=== PATIENT | female | born 1975 | race Caucasian/White ===

== ENCOUNTER 2023-01-08 21:02 | Inpatient (IN) | payer MEDICAID ==
[~2023-01-08] VITALS: Ht 157.5 cm; Wt 68.0 kg
[2023-01-08 22:42] LABS: BASOPHILS % 0.3 % (0.0-2.0); EOSINOPHILS % 10.6 % (0.0-5.0); HEMATOCRIT. 43.5 % (36.0-48.0); HEMOGLOBIN. 14.5 g/dL (12.0-16.0); LYMPHOCYTES % 22.3 % (20.0-50.0); MEAN CORPUSCULAR HEMOGLOBIN 31.3 pg (28.0-32.0); MEAN CORPUSCULAR VOLUME 93.8 fL (81.0-99.0); MEAN PLATELET VOLUME 9.7 fl (7.4-10.4); MONOCYTES % 2.7 % (2.0-8.0); NEUTROPHILS % 64.1 % (40.0-76.0); PLATELET 268 x1000/uL (130-400); RED BLOOD CELL COUNT 4.63 mill/uL (4.2-5.4); RED CELL DISTRIBUTION WIDTH 13.5 % (11.6-14.6)
[2023-01-08 22:52] LABS: CHLORIDE 107 mEq/L (98-107)
[2023-01-08 22:52] LABS: CLARITY URINE CLOUDY (CLEAR); COLOR URINE YELLOW (YELLOW); KETONES URINE NEGATIVE (NEGATIVE); LEUKOCYTE ESTERASE URINE NEGATIVE (NEGATIVE); NITRITE URINE NEGATIVE (NEGATIVE); OCCULT BLOOD URINE NEGATIVE (NEGATIVE); PROTEIN URINE 2+ (NEGATIVE); SPECIFIC GRAVITY URINE 1.013 (1.005-1.030)
[2023-01-08 22:54] LABS: PARTIAL THROMBOPLASTIN TIME 24.7 sec (23.4-31.0); PROTHROMBIN TIME 10.5 sec (9.6-11.0)
[2023-01-08 23:08] LABS: ETHANOL BLOOD < 10 mg/dL
[2023-01-08 23:12] LABS: *AMPHETAMINES SCREEN URINE NEGATIVE (NEGATIVE); *BARBITURATES SCREEN URINE NEGATIVE (NEGATIVE); *BENZODIAZEPINES SCREEN URINE NEGATIVE (NEGATIVE); *COCAINE SCREEN URINE NEGATIVE (NEGATIVE); CANNABINOID URINE SCREEN NEGATIVE (NEGATIVE); METHADONE URINE SCREEN NEGATIVE (NEGATIVE); OPIATES URINE SCREEN NEGATIVE (NEGATIVE); PHENCYCLIDINE URINE SCREEN NEGATIVE (NEGATIVE)
[2023-01-08] MEDS ORDERED: LEVOTHYROXINE SODIUM 25MCG TABLET PO NR (23:30)
[2023-01-08] MEDS ORDERED: SODIUM CHLORIDE 0.9% 1,000 ML IV ONE (23:45)
[2023-01-08] MEDS ORDERED: SODIUM BICARBONATE 8.4% 1 MEQ/ML 50ML SYR IV NR (23:45)
[2023-01-09] MEDS ORDERED: ONDANSETRON HCL 4MG/2ML INJ IV PRN (08:45)
[2023-01-09] MEDS ORDERED: DOCUSATE SODIUM 100MG CAPSULE PO PRN (08:45)
[2023-01-09] MEDS ORDERED: GUAIFENESIN 200MG/10ML SUGAR FREE UDC PO PRN (08:45)
[2023-01-09] MEDS ORDERED: ACETAMINOPHEN 325MG TABLET PO PRN ×2 (08:45)
[2023-01-09] MEDS ORDERED: DIPHENHYDRAMINE 50MG/ML VIAL IV PRN (08:45)
[2023-01-09] MEDS ORDERED: MAGNESIUM/ALUMINUM HYDROXIDE/SIMETHICONE 30ML UDC PO PRN (08:45)
[2023-01-09] MEDS ORDERED: LEVOTHYROXINE SODIUM 50MCG TABLET PO SCH (09:00)
[2023-01-09] MEDS ORDERED: ENOXAPARIN 40MG/0.4ML SYR SUBCUT SCH (09:00)
[2023-01-09] MEDS ORDERED: FAMOTIDINE 20MG TABLET PO SCH ×2 (09:00→21:00)
[2023-01-09 10:52] LABS: T4 FREE 0.86 ng/dL (0.76-1.46)
[2023-01-09 12:00] VITALS: BP 151/68
[2023-01-09] MEDS ORDERED: LEVO25TA2 PO (12:13)
[2023-01-09 12:34] VITALS: BP 104/56
[2023-01-09 12:55] VITALS: BP 104/56
[2023-01-09 16:00] VITALS: BP 110/58
[2023-01-10] MEDS ORDERED: LEVOTHYROXINE SODIUM 25MCG TABLET PO SCH (06:30)
== END 2023-01-09 18:39 | disposition home or self-care (01) | DRG 811 ==
LOC: ER 21:02 → MICUSO 01-09 01:13 → 7WST 01-09 11:24
PROVIDERS: ADMIT Hospitalist; ATTEND Hospitalist
DX: T78.2XXA Anaphylactic shock, unspecified, initial encounter (principal); E87.20 Acidosis, unspecified; G45.9 Transient cerebral ischemic attack, unspecified; E03.8 Other specified hypothyroidism; M19.90 Unspecified osteoarthritis, unspecified site; R73.9 Hyperglycemia, unspecified; W19.XXXA Unspecified fall, initial encounter
CPT/HCPCS: 36415; 71045; 80053; 80061; 80305; 80307; 80320; 80329; 81003; 82140; 82962; 83036; 83605; 83880; 84145; 84439; 84443; 84484; 85025; 93005; 93306; 99285; J1650; J3490; G0480